=== PATIENT | male | born 1990 | race Caucasian/White ===

== ENCOUNTER 2020-07-30 16:24 | Emergency (ER) | payer OTHER ==
[2020-07-30] MEDS ORDERED: HYDROmorphone 1 MG/ML Syringe IM ONE (16:50)
--- NOTE | 2020-07-30 17:08 | EDM.PDOC ---
ED HPI GENERAL MEDICAL PROBLEM - General Chief Complaint: Bite:Animal, Insect Stated Complaint: RT RING FINGER LAC/DOG BITE Time Seen by Provider: 07/30/20 16:51 Source of Information: Reports: Patient, RN Notes Reviewed History Limitations: Reports: No Limitations - History of Present Illness INITIAL COMMENTS - FREE TEXT/NARRATIVE: Patient is a 29-year-old male who presents to the ER for the evaluation of a partial amputation of his right ring finger. Patient went to the [facility] initially, as [place] fencing [place], when 2 of his dog started fighting and he went to go break this up, and one dog ended up biting the tip of his right fourth finger off. Patient notes that he bandages the best he could, went to the clinic. The provider at the [facility] visualized a partial amputation of the right fourth digit, as they noted some jagged exposed bone. The wound was oozing but not gushing when he showed up to their clinic. They applied a pressure dressing and sent him to the ER for further management. He states that he can still move his finger in all range of motion, or what is left of his finger. He has a few smaller superficial abrasions to his left hand, but nothing that appears to need any sort of further management. Patient is up-to-date on his tetanus booster, this was roughly 1 year ago. Patient denies any other sick-like symptoms, fever/chills, cough/shortness of breath, nausea/vomiting/diarrhea. right ring finger Pain Score (Numeric/FACES): 4 - Related Data Allergies Allergy/AdvReac Type Severity Reaction Status Date / Time No Known Allergies Allergy Verified 07/30/20 16:36 Home Meds: Home Meds Hydrocodone/Acetaminophen [Hydrocodone-Acetamin 5-325 mg] 1 each PO Q6H PRN #12 tablet 07/30/20 [Rx] cephALEXin [Cephalexin] 500 mg PO TID 5 Days #15 capsule 07/30/20 [Rx] Past Medical History - Past Health History Medical/Surgical History: Denies Medical/Surgical History Social & Family History - Tobacco Use Tobacco Use Status *Q: Never Tobacco User - Recreational Drug Use Recreational Drug Use: No ED ROS GENERAL - Review of Systems Review Of Systems: Comprehensive ROS is negative, except as noted in HPI. ED EXAM, ANIMAL BITE - Physical Exam Exam: See Below Exam Limited By: No Limitations General Appearance: Alert, WD/WN, No Apparent Distress Respiratory/Chest: No Respiratory Distress, Lungs Clear, Normal Breath Sounds, No Accessory Muscle Use, Chest Non-Tender Cardiovascular: Normal Peripheral Pulses, Regular Rate, Rhythm, No Edema Peripheral Pulses: 2+: Radial (L), Radial (R) Extremities: Normal Range of Motion Neurological: Alert, Oriented, Normal Cognition Psychiatric: Normal Affect, Normal Mood Skin Exam: Normal Color, Warm/Dry, Other (partial amputation of distal tip of R 4th digit) ED ANIMAL BITE PROCEDURES - Laceration/Wound Repair Right Distal Digit - 4th (Ring) Lac/Wound Length In cm: 2 (finger width, the tip of the finger was amputated) Distal NVT: Neuro & Vascular Intact, No Tendon Injury Anesthetic Type: Local Local Anesthesia - Lidocaine (Xylocaine): 1% Plain Local Anesthetic Volume: 5cc Skin Prep: Chlorhexidine (Hibiciens), Saline Exploration/Debridement/Repair: Wound Explored, In a Bloodless Field, Explored to Base, No Foreign Material Found Closed With: Sutures Suture Size: 4-0 # of Sutures: 1 Suture Type: Prolene, Interrupted, Simple Sterile Dressing Applied: Nurse Tetanus Status Addressed: Yes Complications: No Course - Vital Signs Last Recorded V/S: Last Vital Signs Temp 97.7 F 07/30/20 16:33 Pulse 72 07/30/20 16:33 Resp 18 07/30/20 16:33 BP 176/111 H 07/30/20 16:33 Pulse Ox 99 07/30/20 16:33 - Orders/Labs/Meds Orders: Active Orders 24 hr Category Date Time Status Fingers Fourth Digit Rt F8 [CR] Stat Exams 07/30/20 16:50 Ordered Meds: Medications Discontinued Medications Generic Name Dose Route Start Last Admin Trade Name Freq PRN Reason Stop Dose Admin Hydromorphone HCl 1 mg 07/30/20 16:50 Hydromorphone 1 Mg/Ml Syringe IM 07/30/20 16:51 ONETIME ONE - Re-Assessments/Exams Free Text/Narrative Re-Assessment/Exam: 07/30/20 17:17 Patient presents to the ER for his dog bite/partial amputation of his finger. Have been in contact with orthopedics as we do have Dr. Chen on-call and he would recommend placing the patient on Keflex 3 times daily for 5 days, clean the wound the best you can, put a few sutures in it to keep the edges as close together as possible, and he will evaluate the patient tomorrow, and hopefully revise the finger on Tuesday. I have ordered a milligram of Dilaudid for pain management for the patient and we will get x-rays to see how much of the bone is still there versus how much the dog took. Departure - Departure Time of Disposition: 18:13 Disposition: Home, Self-Care 01 Condition: Good Clinical Impression: Dog bite of extremity Partial traumatic amputation of finger through phalanx Qualifiers: Encounter type: initial encounter Qualified Code(s): S68.629A - Partial traumatic transphalangeal amputation of unspecified finger, initial encounter - Discharge Information *PRESCRIPTION DRUG MONITORING PROGRAM REVIEWED*: Yes *COPY OF PRESCRIPTION DRUG MONITORING REPORT IN PATIENT CAROL: No Instructions: Traumatic Finger Amputation Referrals: PCP,None [Primary Care Provider] - Additional Instructions: You were evaluated in the ER today for the partial amputation of your right ring finger. This was reviewed by our addiction specialist, Dr. Chen, x-rays were taken and there was only a small portion of the bone that was missing, along with soft tissue of your ring finger tip of your right hand. 1 suture was placed, to bring the wound back together a little bit for healing purposes however you will need to be evaluated by Dr. Chen in clinic tomorrow, an appointment was made for you at 10:45 AM, you will need to be there at 10:30 in the morning on the clinic side of the hospital, which is the [facility] entrance. Please bring your ID, insurance cards and any other forms of paperwork that would be pertinent for a medical appointment. You have been placed on an antibiotic, Keflex 1 tablet 3 times a day for the next 5 days. You were given a strong pain medication, hydrocodone/acetaminophen 5/325 mg for pain management. These medications were electronically prescribed to the [place] pharmacy located in the [facility] [employer] [facility]. Please keep the areas clean and dry as you can, a pressure dressing was placed, to help provide relief from the bleeding. You will likely need surgical revision of the wound, but Dr. Chen we will go over all of those options with you tomorrow at the appointment. Please return to the ER at any time if symptoms change or worsen. Sepsis Event Note (ED) - Evaluation Sepsis Screening Result: No Definite Risk - Focused Exam Vital Signs: Vital Signs Temp Pulse Resp BP Pulse Ox 07/30/20 16:33 97.7 F 72 18 176/111 H 99 - My Orders Last 24 Hours: My Active Orders 07/30/20 16:50 Fingers Fourth Digit Rt F8 [CR] Stat - Assessment/Plan Last 24 Hours: My Active Orders 07/30/20 16:50 Fingers Fourth Digit Rt F8 [CR] Stat
[2020-07-30] MEDS ORDERED: Lidocaine 1% 10 ML MDV INJECT ONE (17:19)
--- NOTE | 2020-07-31 08:02 | CR ---
Right fourth finger: 3 views of the right fourth finger were obtained. Comparison: No previous finger or hand exam is available. Fracture is noted within the distal phalanx of the fourth finger through the shaft. Small amount of distal tuft has been amputated within the fourth finger. Soft tissue injury is noted. No proximal bony abnormality is appreciated. Impression: 1. Distal phalanx fracture within the fourth finger as noted above. 3. Soft tissue injury. Diagnostic code #3
== END 2020-07-30 18:38 | disposition home or self-care (01) ==
LOC: JD.ED 16:24
DX: S68.624A Partial traumatic transphalangeal amputation of right ring finger, initial encounter (principal); W54.0XXA Bitten by dog, initial encounter
CPT/HCPCS: 12001; 73140; 96372; 99283; J1170

== ENCOUNTER 2020-08-04 06:32 | Day surgery (SDC) | payer OTHER ==
[~2020-08-04 06:32] MED LIST: Lactated Ringers 1,000 ML IV SCH; Lidocaine 1%/Sod Bicarbonate in NS 8.4% 1 ML Syringe IDERM PRN; Sodium Chloride 0.9% 10 ML Syringe FLUSH PRN
[2020-08-04] MEDS ORDERED: fentaNYL 100 MCG/2 ML SDV ONE (06:35)
[2020-08-04] MEDS ORDERED: Lidocaine 1% 4 ML ONE (06:35)
[2020-08-04] MEDS ORDERED: Midazolam 1 MG/ML 2 ML SDV ONE ×2 (06:35→07:16)
[2020-08-04] MEDS ORDERED: Propofol 200 MG/20 ML SDV ONE (06:36)
[2020-08-04] MEDS ORDERED: Lidocaine 1% 30 ML SDV ONE (06:39)
[2020-08-04] MEDS ORDERED: Bupivacaine 0.25% 10 ML SDV ONE ×2 (06:39→08:00)
--- NOTE | 2020-08-04 06:56 | PCM.PREANE ---
Preanesthetic Assessment - Procedure Proposed Procedure: amputation revision right ring distal phalnx finger - Anesthesia/Transfusion/Family Hx Anesthesia History: Prior Anesthesia Without Reaction Family History of Anesthesia Reaction: No Transfusion History: No Prior Transfusion(s) - Review of Systems General: No Symptoms Pulmonary: No Symptoms Cardiovascular: No Symptoms Gastrointestinal: No Symptoms Neurological: No Symptoms Other: Reports: None - Physical Assessment NPO Status Date: 08/03/20 NPO Status Time: 20:30 Vital Signs: 150/92 73 945% 98.1 16 Height: 6 ft 1 in Weight: 106 kg ASA Class: 2 Mental Status: Alert & Oriented x3 Airway Class: Mallampati = 1 Dentition: Reports: Normal Dentition Thyro-Mental Finger Breadths: 3 Mouth Opening Finger Breadths: 3 ROM/Head Extension: Other Lungs: Clear to Auscultation Cardiovascular: Regular Rate, Regular Rhythm - Allergies Allergies/Adverse Reactions: Allergies Allergy/AdvReac Type Severity Reaction Status Date / Time No Known Allergies Allergy Verified 08/01/20 15:23 - Blood Blood Available: No - Acknowledgements Anesthesia Type Planned: MAC Pt an Appropriate Candidate for the Planned Anesthesia: Yes Alternatives and Risks of Anesthesia Discussed w Pt/Guardian: Yes Pt/Guardian Understands and Agrees with Anesthesia Plan: Yes PreAnesthesia Questionnaire - Past Health History Medical/Surgical History: Denies Medical/Surgical History Cardiovascular History: Reports: None Respiratory History: Reports: Asthma Gastrointestinal History: Reports: GERD (occasionally) Musculoskeletal History: Reports: None Psychiatric History: Reports: None Oncologic (Cancer) History: Reports: None - Past Surgical History Neurological Surgical History: Reports: Other (See Below) (anesthesia for shoulder dislocation) - SUBSTANCE USE Tobacco Use Status *Q: Current Every Day Tobacco User Tobacco Use Within Last Twelve Months: Snuff/Dip Second Hand Smoke Exposure: No Days Per Week of Alcohol Use: 2 Number of Drinks Per Day: 8 (beer) Total Drinks Per Week: 16 Recreational Drug Use History: No - HOME MEDS Home Medications: Home Meds cephALEXin [Cephalexin] 500 mg PO TID 5 Days #15 capsule 07/30/20 [Rx] Hydrocodone/Acetaminophen [Hydrocodone-Acetamin 5-325 mg] 1 - 2 each PO Q6H PRN #15 tablet 08/01/20 [Rx] - CURRENT (IN HOUSE) MEDS Current Meds: Current Medications Lactated Ringer's (Ringers, Lactated) 1,000 mls @ 125 mls/hr IV ASDIRECTED LOUANN Stop: 08/04/20 23:00 Lidocaine/Sodium Bicarbonate (Lidocaine 1%/Sod Bicarbonate In Ns 8.4% 1 Ml Syringe) 0.25 ml IDERM ONETIME PRN PRN Reason: Prior to IV Start Stop: 08/04/20 18:00 Sodium Chloride (Sodium Chloride 0.9% 10 Ml Syringe) 10 ml FLUSH ASDIRECTED PRN PRN Reason: Keep Vein Open Stop: 08/04/20 18:00 Discontinued Medications Bupivacaine HCl (Bupivacaine 0.25% 10 Ml Sdv) Confirm Administered Dose 20 ml .ROUTE .STK-MED ONE Stop: 08/04/20 06:40 Fentanyl (Fentanyl 100 Mcg/2 Ml Sdv) Confirm Administered Dose 100 mcg .ROUTE .STK-MED ONE Stop: 08/04/20 06:36 Lidocaine HCl (Xylocaine-Mpf 1%) Confirm Administered Dose 4 mls @ as directed .ROUTE .STK-MED ONE Stop: 08/04/20 06:36 Lidocaine HCl (Lidocaine 1% 30 Ml Sdv) Confirm Administered Dose 30 ml .ROUTE .STK-MED ONE Stop: 08/04/20 06:40 Midazolam HCl (Midazolam 1 Mg/Ml 2 Ml Sdv) Confirm Administered Dose 2 mg .ROUTE .STK-MED ONE Stop: 08/04/20 06:36 Propofol (Propofol 200 Mg/20 Ml Sdv) Confirm Administered Dose 200 mg .ROUTE .STK-MED ONE Stop: 08/04/20 06:37
[2020-08-04] MEDS ORDERED: ceFAZolin 1 GM Vial ONE (07:06)
[2020-08-04] MEDS ORDERED: Ondansetron 4 MG/2 ML SDV IVPUSH PRN (07:24)
[2020-08-04] MEDS ORDERED: HYDROmorphone 0.5 MG/0.5 ML Syringe IVPUSH PRN (07:24)
[2020-08-04] MEDS ORDERED: fentaNYL 100 MCG/2 ML SDV IVPUSH PRN (07:24)
[2020-08-04] MEDS ORDERED: Ketorolac 30 MG/ML SDV ONE (07:52)
--- NOTE | 2020-08-04 07:59 | PCM48HPAN ---
Post Anesthesia Note - EVALUATION WITHIN 48HRS OF ANESTHETIC Vital Signs in Normal Range: Yes Patient Participated in Evaluation: Yes Respiratory Function Stable: Yes Airway Patent: Yes Cardiovascular Function Stable: Yes Hydration Status Stable: Yes Pain Control Satisfactory: Yes Nausea and Vomiting Control Satisfactory: Yes Mental Status Recovered: Yes Vital Signs: Last Vital Signs Temp 98.1 F 08/04/20 06:25 Pulse 73 08/04/20 06:25 Resp 16 08/04/20 06:25 BP 150/92 H 08/04/20 06:25 Pulse Ox 95 08/04/20 06:25 0752 129/98 98% 80 16 97.1
--- NOTE | 2020-08-04 16:46 | PCM.OPNOTE ---
- General Post-Op/Procedure Note Date of Surgery/Procedure: 08/04/20 Operative Procedure(s): right ring fingertip amputation revision Pre Op Diagnosis: right ring finger tip amputation Post-Op Diagnosis: Same Anesthesia Technique: Local, MAC Primary Surgeon: Christiano Chen Anesthesia Provider: Deyanira Lion Paper Bag Making Machinist: Selene Feliciano EBL in mLs: 5 Complications: None Condition: Good Free Text/Narrative:: Intake & Output 08/04/20 08/04/20 08/04/20 06:59 14:59 22:59 Intake Total 300 Balance 300
--- NOTE | 2020-08-11 07:39 | OR ---
DATE OF OPERATION: 08/04/2020 SURGEON: Christiano Chen MD OPERATION PERFORMED: Right ring fingertip amputation revision. PREOPERATIVE DIAGNOSIS: Right ring fingertip amputation, traumatic. POSTOPERATIVE DIAGNOSIS: Right ring fingertip amputation, traumatic. ANESTHESIA: Local MAC. ANESTHESIA PROVIDER: Deyanira Lion CRNA SHOW DESIGN SUPERVISOR: Selene Feliciano PA-C ESTIMATED BLOOD LOSS: 5 mL. COMPLICATIONS: None. CONDITION: Stable. DESCRIPTION OF PROCEDURE: The patient was identified in the preoperative holding area. Proper site was marked and identified by the surgeon. The patient was taken back to the operative theater where, after adequate anesthesia, the patient's right upper extremity was sterilely prepped and draped in the usual sterile fashion. OR time-out was performed. The patient received 2 g IV Ancef before prepping. 1% lidocaine without epinephrine and 0.25% Marcaine without epinephrine were used to do a digital block of the right ring finger. After it was sterilely prepped and draped, the patient was noted to have exposed bone of the distal phalanx. At this time, I was able to rongeur the exposed bone down but not all the way to the DIP joint, and at this time, the patient had adequate coverage of skin and soft tissue over the bone that we will not have to take the DIP joint. We did irrigate 3 L of normal saline through the wound. There were no signs of infection. 4-0 nylon simple sutures were then used for closure over the fingertip. The patient was noted to have a few areas where the skin was missing, but otherwise subcutaneous tissue was intact. Once it was found to have adequate coverage of the previously exposed bone, a soft tissue dressing was applied as well as a splint. The patient was sent to the PACU in stable condition. MMODAL /[id number]
== END 2020-08-04 08:25 | disposition home or self-care (01) ==
LOC: JD.SDS 06:32
PROVIDERS: ATTEND Orthopaedic Surgery
DX: S68.124A Partial traumatic metacarpophalangeal amputation of right ring finger, initial encounter (principal); Z79.899 Other long term (current) drug therapy; J45.909 Unspecified asthma, uncomplicated; F17.210 Nicotine dependence, cigarettes, uncomplicated; K21.9 Gastro-esophageal reflux disease without esophagitis
CPT/HCPCS: 26951; J0690; J1885; J2250; J2704; J3010; J3490; J7120; 01830

== ENCOUNTER 2020-12-08 13:00 | Emergency (ER) | payer OTHER ==
--- NOTE | 2020-12-08 13:33 | EDM.PDOC ---
ED HPI GENERAL MEDICAL PROBLEM - General Chief Complaint: Upper Extremity Injury/Pain Stated Complaint: SHOULDER INJURY Time Seen by Provider: 12/08/20 13:09 Source of Information: Reports: Patient History Limitations: Reports: No Limitations - History of Present Illness INITIAL COMMENTS - FREE TEXT/NARRATIVE: 30-year-old male presents the emergency department today with complaints of right shoulder injury that occurred 2 days ago. Patient states he was in a rodeo on a bucking horse when he fell off the horse and landed directly onto his right shoulder. Patient states that there was an EMT on scene who told him that his shoulder was dislocated and put his shoulder back into place. However, he states that since the incident he has not been able to lift his right arm at all, mostly due to pain and weakness. Patient does admit to a prior history of dislocation of the right shoulder with fractured humerus. He states he is otherwise healthy. He does not smoke. He chews tobacco. He drinks socially on the weekends. He has been taking 600 of ibuprofen a couple times daily for the pain in his right shoulder. Right Shoulder Pain Score (Numeric/FACES): 6 - Related Data Allergies Allergy/AdvReac Type Severity Reaction Status Date / Time No Known Allergies Allergy Verified 12/08/20 13:17 Home Meds: Home Meds cephALEXin [Cephalexin] 500 mg PO TID 5 Days #15 capsule 07/30/20 [Rx] Hydrocodone/Acetaminophen [HYDROcodone-Acetaminophen 5-325 MG] 1 - 2 each PO Q6H PRN #15 tablet 08/01/20 [Rx] Acetaminophen/HYDROcodone [[place] 325-5 MG] 1 tab PO Q6H PRN 08/04/20 [History] Hydrocodone/Acetaminophen [HYDROcodone-Acetaminophen 5-325 MG] 1 each PO Q6H PRN #10 tab 12/08/20 [Rx] Past Medical History - Past Health History Medical/Surgical History: Denies Medical/Surgical History Cardiovascular History: Reports: None Respiratory History: Reports: Asthma Gastrointestinal History: Reports: GERD Musculoskeletal History: Reports: None Psychiatric History: Reports: None Oncologic (Cancer) History: Reports: None - Infectious Disease History Infectious Disease History: Reports: Chicken Pox - Past Surgical History Neurological Surgical History: Reports: Other (See Below) Social & Family History - Caffeine Use Caffeine Use: Reports: Soda - Recreational Drug Use Recreational Drug Use: No Review of Systems - Review of Systems Review Of Systems: Comprehensive ROS is negative, except as noted in HPI. ED EXAM, GENERAL - Physical Exam Exam: See Below Exam Limited By: No Limitations General Appearance: Alert, WD/WN, No Apparent Distress Eye Exam: Bilateral Eye: PERRL Ears: Normal External Exam, Hearing Grossly Normal Nose: Normal Inspection Throat/Mouth: Normal Inspection, Normal Lips, Normal Voice, No Airway Compromise Head: Atraumatic, Normocephalic Neck: Normal Inspection, Supple, Non-Tender, Full Range of Motion Respiratory/Chest: No Respiratory Distress, No Accessory Muscle Use Cardiovascular: Normal Peripheral Pulses, Regular Rate, Rhythm, No Murmur. No: No Edema (Swelling noted to the right shoulder, right humerus, right elbow) Peripheral Pulses: 2+: Radial (L), Radial (R) GI/Abdominal: No Distention (Male) Exam: Deferred Rectal (Males) Exam: Deferred Back Exam: Normal Inspection Extremities: Limited Range of Motion (Right shoulder). No: Normal Inspection (Swelling and ecchymosis noted to right anterior shoulder and right lateral rib area. Also noted to right medial humerus area), Non-Tender (Right posterior shoulder) Neurological: Alert, Oriented, Normal Cognition Psychiatric: Normal Affect, Normal Mood Skin Exam: Warm, Dry, Intact, No Rash, Ecchymosis (Right anterior shoulder. Right medial humerus, right lateral rib) Lymphatic: No Adenopathy Course - Vital Signs Text/Narrative:: As stated above, patient presents with a right shoulder injury that occurred 2 days ago when he got bucked off of a horse and landed directly on his right shoulder. EMT was on scene and states that the EMT put her shoulder back into place however he has not been able to raise his right arm since the incident. Upon assessment, the patient does have significant bruising noted to the anterior shoulder/humerus and along the right lateral rib area. He is unable to perform any range of motion with his right arm. He is unable to raise his arm anteriorly or laterally. He is unable to place his hand behind his back on the right side. He denies any neuropathy. He has equal sensation bilaterally to the shoulders, humerus, forearm and hands. He denies any neuropathy to his hands or fingers. His field sales consultant are equal to his hands. His right shoulder does appear slightly lower than his left shoulder. I suspect that it is still dislocated. Will obtain an x-ray of the right shoulder. Last Recorded V/S: Last Vital Signs Temp 97.0 F 12/08/20 13:11 Pulse 99 12/08/20 13:11 Resp 18 12/08/20 13:11 BP 136/92 H 12/08/20 13:11 Pulse Ox 98 12/08/20 13:11 - Orders/Labs/Meds Orders: Active Orders 24 hr Category Date Time Status Shoulder 1V Rt [CR] Stat Exams 12/08/20 14:22 Taken - Re-Assessments/Exams Free Text/Narrative Re-Assessment/Exam: 12/08/20 14:24 Radiologist impression 3 view of the right shoulder: 1. Calcified tendinitis. 2. Calcified loose bodies inferiorly within the glenohumeral joint. 3. No acute osseous abnormality is seen. I spoke with orthopedic surgeon, Dr. Chen, and he requested that I order an anterior lateral view of the shoulder. He states he will watch for the x-ray and phone me with further orders. 12/08/20 14:59 Dr. Chen did review the axillary and lateral view of the shoulder. He did phone me back and states he does not feel that the shoulder is dislocated. He recommends that I send the patient home in a sling and to follow-up with April as he likely will need an MRI. Departure - Departure Time of Disposition: 15:04 Disposition: Home, Self-Care 01 Condition: Good Clinical Impression: Right shoulder injury Qualifiers: Encounter type: initial encounter Qualified Code(s): S49.91XA - Unspecified injury of right shoulder and upper arm, initial encounter - Discharge Information Prescriptions: Hydrocodone/Acetaminophen [HYDROcodone-Acetaminophen 5-325 MG] 1 each PO Q6H PRN #10 tab PRN Reason: Pain (Moderate 4-6) Instructions: How To Use a Sling, [id number], Shoulder Pain, [id number] Referrals: PCP,None [Primary Care Provider] - Christiano Chen MD [Physician] - Forms: ED Department Discharge Additional Instructions: You were seen in the emergency department today with shoulder injury that occurred on Tuesday. X-rays were completed and it does not appear that your shoulder is dislocated. I did consult with orthopedic surgeon, Dr. Chen, who also looked at the x-rays. He suspects that you might have a rotator cuff injury and likely will need an MRI. We will send you home with a sling. May take ibuprofen 600 mg every 6-8 hours as needed for mild discomfort. I have sent prescription for hydrocodone to your pharmacy. You may take 1-2 tabs at bedtime as needed for more severe pain. Recommend that you ice the shoulder 30 minutes at a time every 3 hours while awake. Do not use heat or heating pads to the area as this causes more swelling and inflammation. You will need to call Dr. Chen's office today to schedule an appointment with him. The phone number is [phone]. Sepsis Event Note (ED) - Focused Exam Vital Signs: Vital Signs Temp Pulse Resp BP Pulse Ox 12/08/20 13:11 97.0 F 99 18 136/92 H 98 - My Orders Last 24 Hours: My Active Orders 12/08/20 14:22 Shoulder 1V Rt [CR] Stat - Assessment/Plan Last 24 Hours: My Active Orders 12/08/20 14:22 Shoulder 1V Rt [CR] Stat
--- NOTE | 2020-12-08 14:22 | CR ---
Right shoulder: 3 views of the right shoulder were obtained. Comparison: Prior MRI shoulder study of 11/18/11. Calcifications are projected above the humeral head compatible with calcific tendinitis. Calcifications are also seen inferiorly compatible with calcific loose bodies within the joint. Glenohumeral joint and acromioclavicular joint are otherwise unremarkable. No acute fracture or subluxation is seen. Impression: 1. Calcific tendinitis. 2. Calcific loose bodies inferiorly within the glenohumeral joint. 3. No acute osseous abnormality is seen. Diagnostic code #3
--- NOTE | 2020-12-08 15:32 | CR ---
Right shoulder: Single axillary view of the right shoulder was obtained. Comparison: Prior right shoulder study performed earlier on the same day (1:24 PM). Glenohumeral alignment is normal. Slight calcific tendinitis is seen. Impression: 1. Normal glenohumeral alignment. Diagnostic code #2
== END 2020-12-08 15:14 | disposition home or self-care (01) ==
LOC: JD.ED 13:00
DX: S40.011A Contusion of right shoulder, initial encounter (principal); S20.211A Contusion of right front wall of thorax, initial encounter; J45.909 Unspecified asthma, uncomplicated; V80.010A Animal-rider injured by fall from or being thrown from horse in noncollision accident, initial encounter
CPT/HCPCS: 73020-26-RT; 73020-RT; 73030-26-RT; 73030-RT; 99283; 99283-25